=== PATIENT | female | born 1995 | race Two or more races ===

== ENCOUNTER 2019-09-01 16:44 | Emergency (ER) | payer OTHER ==
[~2019-09-01] VITALS: Ht 165.1 cm; Wt 79.8 kg
[2019-09-01 16:59] VITALS: BP 118/77
--- NOTE | 2019-09-01 17:09 | NUR ---
ED Nurse Note: Pt reports chest pain times 1 month, increasingly getting worse in the past days. No cough or SOB and denies fever. AAO x4 and ambulatory with non labored breathing.
--- NOTE | 2019-09-01 17:20 | Emergency Room Report ---
History of Present Illness General Chief Complaint: Chest Pain Source: Patient Present Illness HPI 24-year-old female with no significant past medical history here complaining of over 1 month of chest pain with minimal shortness of breath. Patient reports that the pain is worsened when laying down and is worse after eating. Patient denies eating spicy food however reports that she drinks a lot of coffee and soda. 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 Denies any fever and chills, cough or congestion. Reports in the past week her pain started getting worse. Rates it 7 out of 10 without radiation. Also reports that the symptoms that she gets the pain she feels burping and nausea. Reports her last menstrual period was 2 weeks ago and denies at this time. Denies diffuse abdominal pain, diarrhea and constipation. Denies any recent travel. Resting comfortably with stable vital signs, afebrile, oxygenation within normal limits. Denies drug use, tobacco smoke, alcohol intake. Patient reports that she has been taking aspirin however does not have any improvement. Denies cardiac history for herself and her family. Allergies: Coded Allergies: No Known Allergies (Unverified , 09/01/19) COVID-19 Screening Contact w/high risk pt: No Recent Travel to affected area: No Experienced COVID-19 symptoms?: No Patient History Past Medical History: see triage record Past Surgical History: none Pertinent Family History: none Last Menstrual Period: 08/17/19 Now: No Immunizations: UTD Reviewed Nursing Documentation: PMH: Agreed; PSxH: Agreed Nursing Documentation-PMH Past Medical History: No Stated History Review of Systems All Other Systems: negative except mentioned in HPI Physical Exam Vital Signs Date Time Temp Pulse Resp B/P (MAP) Pulse Ox O2 Delivery O2 Flow Rate FiO2 09/01/19 16:59 98.8 83 18 118/77 (91) 97 Room Air Sp02 EP Interpretation: reviewed, normal General Appearance: no apparent distress, alert, GCS 15, non-toxic Head: normocephalic, atraumatic Eyes: bilateral eye normal inspection, bilateral eye PERRL ENT: hearing grossly normal, normal pharynx, no angioedema, normal voice Neck: full range of motion, supple/symm/no masses Respiratory: chest non-tender, lungs clear, normal breath sounds, speaking full sentences Cardiovascular #1: regular rate, rhythm, no edema Gastrointestinal: normal bowel sounds, non tender, soft, non-distended, no guarding, no rebound Genitourinary: no CVA tenderness Musculoskeletal: normal inspection Neurologic: alert, oriented Psychiatric: judgement/insight normal, memory normal, mood/affect normal, no suicidal/homicidal ideation Skin: no rash Lymphatic: normal inspection Medical Decision Making PA Attestation All my diagnosis and treatment plans were reviewed ad discussed with my supervising physician Dr. Cabrera Diagnostic Impression: Primary Impression: GERD (gastroesophageal reflux disease) Additional Impression: Chest pain ER Course 24-year-old female with no significant past medical history here complaining of over 1 month of chest pain with minimal shortness of breath. Patient reports that the pain is worsened when laying down and is worse after eating. Patient denies eating spicy food however reports that she drinks a lot of coffee and soda. 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 Denies any fever and chills, cough or congestion. Reports in the past week her pain started getting worse. Rates it 7 out of 10 without radiation. Also reports that the symptoms that she gets the pain she feels burping and nausea. Reports her last menstrual period was 2 weeks ago and denies at this time. Denies diffuse abdominal pain, diarrhea and constipation. Denies any recent travel. Resting comfortably with stable vital signs, afebrile, oxygenation within normal limits. Denies drug use, tobacco smoke, alcohol intake. Patient reports that she has been taking aspirin however does not have any improvement. Denies cardiac history for herself and her family. Ddx considered but are not limited to: [place], Angina, COPD, GERD, coronavirus Vital signs: are WNL, pt. is afebrile H&PE are most consistent with GERD, unspecified chest pain ORDERS: EKG, Chest XR, at this time no further imaging or blood work does not meet the criteria for testing for troponin. Omeprazole, Zofran, Tylenol ED INTERVENTIONS: None required at this time. DISCHARGE: At this time pt. is stable for d/c to home. Will provide printed patient care instructions, and any necessary prescriptions. Care plan and follow up instructions have been discussed with the patient prior to discharge. Gave patient instructions on GERD as well as unspecified chest pain advised patient to follow primary doctor for referral to spool hauler and possibly to a intermediate project manager. Also gave information regarding COVID testing across the street if patient is interested. Patient stable at time of discharge. EKG Diagnostic Results Rate: normal Rhythm: NSR ST Segments: no acute changes Other Impression No acute ST changes Chest X-Ray Diagnostic Results Chest X-Ray Diagnostic Results : Chest X-Ray Ordered: Yes # of Views/Limited/Complete: 1 View Indication: Chest Pain EP Interpretation: Yes PA Xray: Interpretation reviewed, and agrees with findings. Interpretation: no consolidation, no effusion, no pneumothorax Impression: No acute disease Electronically Signed by: Ivan HUSSEIN Scribe Text 1. Low lung volumes with bronchovascular crowding. 2. Otherwise no acute cardiopulmonary disease. 3. If there is continued concern, recommend frontal and lateral chest radiographs or CT. Last Vital Signs Date Time Temp Pulse Resp B/P (MAP) Pulse Ox O2 Delivery O2 Flow Rate FiO2 09/01/19 16:59 98.8 83 18 118/77 (91) 97 Room Air Disposition: HOME, SELF-CARE Condition: Stable Scripts Acetaminophen* (TYLENOL EXTRA STRENGTH*) 500 Mg Tablet 500 MG ORAL Q8H PRN for Prn Headache/Temp > 101, #30 TAB 0 Refills Prov: Ivan Kilgore 09/01/19 Ondansetron (Zofran) 4 Mg Tablet 4 MG ORAL Q6H PRN for Nausea & Vomiting, #10 TAB Prov: Ivan Kilgore 09/01/19 Omeprazole (OMEPRAZOLE) 20 Mg Tablet. 20 MG ORAL DAILY, #60 TAB Prov: Ivan Kilgore 09/01/19 Patient Instructions: Food Choices for Gastroesophageal Reflux Disease, Adult, [id number], Heartburn, Nonspecific Chest Pain Additional Instructions: Take medication as directed, follow with primary doctor, if worsening symptoms and no improvement with omeprazole see primary doctor for referral to spool hauler for possible endoscopy. Avoid eating spicy and acidic food. Take medication as directed, follow-up with your primary doctor, you need to stay home for self quarantine due to Covid 19 precautions for 14 days Iavn Kilgore Sep 01, 2019 17:20
--- NOTE | 2019-09-01 17:23 | Diagnostic Imaging Report ---
EXAM: XR Chest, 1 View CLINICAL HISTORY: PAIN TECHNIQUE: Frontal view of the chest. COMPARISON: No relevant prior studies available. FINDINGS: Lungs: Low lung volumes with bronchovascular crowding. No consolidation, pleural effusion, or pneumothorax. Pleural space: See above. Heart: Unremarkable. No cardiomegaly. Mediastinum: Unremarkable. Bones/joints: Unremarkable. IMPRESSION: 1. Low lung volumes with bronchovascular crowding. 2. Otherwise no acute cardiopulmonary disease. 3. If there is continued concern, recommend frontal and lateral chest radiographs or CT.
[2019-09-01] MEDS ORDERED: TYLENOL EXTRA500 MG ORAL (17:45)
[2019-09-01] MEDS ORDERED: OMEPRAZOLE20 M3 ORAL (17:45)
[2019-09-01] MEDS ORDERED: ZOFRAN4 M1 ORAL (17:45)
[2019-09-01 17:51] VITALS: BP 124/65
--- NOTE | 2019-09-01 17:51 | NUR ---
ER DISCHARGE NOTE: Patient is cleared to be discharged per PA, pt is aox4, on room air, with stable vital signs. pt was given dc and prescription instructions, pt was able to verbalize understanding, pt id band removed without complications. pt is able to ambulate with steady gait. pt took all belongings.
== END 2019-09-01 17:51 | disposition home or self-care (01) ==
LOC: EMR 17:22
DX: K21.9 Gastro-esophageal reflux disease without esophagitis (principal); R07.9 Chest pain, unspecified
CPT/HCPCS: 71045; 93005; Z7502; 99283